=== PATIENT | male | born 1995 | race Caucasian/White ===

== ENCOUNTER 2021-12-06 09:07 | Emergency (ER) | payer OTHER ==
[~2021-12-06] VITALS: Ht 185.4 cm; Wt 90.9 kg
[2021-12-06 09:10] VITALS: BP 126/75
[2021-12-06] MEDS ORDERED: CEPH-585 PO (10:33)
[2021-12-06] MEDS ORDERED: MUPI22OI30 TOP (10:33)
== END 2021-12-06 11:32 | disposition home or self-care (01) ==
LOC: ER 09:07
DX: T24.122A Burn of first degree of left knee, initial encounter (principal); Y26.XXXA Exposure to smoke, fire and flames, undetermined intent, initial encounter; Y93.89 Activity, other specified; Y92.89 Other specified places as the place of occurrence of the external cause; Y99.8 Other external cause status
CPT/HCPCS: 99283